=== PATIENT | male | born 1965 | race Caucasian/White ===

== ENCOUNTER 2023-05-27 12:35 | Emergency (ER) | payer OTHER, SELFPAY ==
[2023-05-27 14:09] VITALS: BP 142/88; PULSE 78; RESP 18; TEMP 36.3; O2SAT 96; BMI 33.7
--- NOTE | 2023-05-27 14:20 | ED.GENADULT ---
HPI - General Adult General Chief complaint: General Medical Stated complaint: HBS/HBP Time Seen by Provider: 05/27/23 22:18 Source: patient, RN notes reviewed and old records reviewed Mode of arrival: ambulatory Limitations: no limitations History of Present Illness HPI narrative: 57-year-old male who denies any past medical history presents for evaluation of urinary frequency and elevated blood sugar. Patient reports that he has remote history of high blood pressure but ?I was able to control it with dieting and exercise so I do not take any medications He states for the last few weeks he has noticed increased urination and thirst especially nocturnal urinary frequency He denies any pain He checked his blood sugar at his job and it was noted to be over 400 He denies any known history of diabetes Related Data Previous Rx's Medication Instructions Recorded metformin 500 mg tablet 500 mg PO BID #60 tabs 05/27/23 Allergies Allergy/AdvReac Type Severity Reaction Status Date / Time No Known Allergies Allergy Verified 05/27/23 14:08 Review of Systems Constitutional: Constitutional: Denies chills and Denies fever(s) Cardiovascular: Cardiovascular: Denies chest pain and Denies dyspnea Respiratory: Respiratory: Denies cough and Denies dyspnea Gastrointestinal: Gastrointestinal: Denies abdominal pain, Denies nausea and Denies vomiting Genitourinary: Genitourinary: Reports nocturia and Reports urinary frequency Musculoskeletal: Musculoskeletal: Denies back pain Integumentary/Breasts: Skin/Breast: Denies rash PMFSH Social History Social History Advance Directives: No Advance Directives Information Provided: No Physical Exam ED Vital Signs: Vital Signs - 24 hr 05/27/23 14:09 05/27/23 17:36 05/27/23 21:46 Temperature 97.3 F 97.6 F 97.7 F Pulse Rate 78 85 83 Respiratory Rate 18 18 18 Blood Pressure 142/88 H 132/84 129/82 Pulse Oximetry 96 95 97 Oxygen Delivery Method Room Air Room Air Room Air 05/27/23 22:15 Temperature 97.9 F Pulse Rate 83 Respiratory Rate 16 Blood Pressure 141/97 H Pulse Oximetry 95 Oxygen Delivery Method Room Air BMI result Body Mass Index 33.7 Const General: healthy appearing, comfortable, no acute distress, alert and awake Nutritional Appearance: well nourished Orientation/consciousness: patient oriented x3 HENMT Head: Yes normocephalic and Yes atraumatic Eyes Eyelids: Yes eyelids normal Conjunctivae: conjunctivae normal Sclerae: sclerae normal Corneas: corneas normal Pupils: Equal, round and reactive pupils present EOM: EOMs intact bilaterally Neck Neck: Yes full ROM Resp Effort & Inspection: normal respiratory effort, able to speak in complete sentences and not labored Cardio Rate: regular rate Rhythm: regular rhythm GI Inspection: No distended Palpation (GI): Soft to palpation, not firm, nontender, no guarding and not rigid Skin General skin exam: elasticity normal Neuro General: patient oriented x3 Cranial nerves: Yes Equal, round and reactive pupils present and Yes Bilaterally intact EOM present Cognition (Neuro): normal cognition Extrem Other: Moving all extremities well without any obvious deformities Course Course Course Narrative: This is an RME: Additional HPI, ROS, PE not included below will be deferred to primary provider. This is a 57-year-old male, with no known medical problems, presenting to the emergency department with frequent urination, dry mouth. He checked his sugar on Saturday and it was 408. No history of diabetes however states family medical history. No fevers or chills. No abdominal pain, nausea or vomiting. No chest pain or shortness of breath Plan: Labs, UA Medications Administered Generic Name Dose Route Start Last Admin Trade Name Freq PRN Reason Stop Dose Admin Sodium Chloride 1,000 mls @ 999 mls/hr 05/27/23 23:00 05/27/23 23:07 Ns IV 05/28/23 01:00 999 mls/hr .[id number] CHANEL Administration Medical Decision Making Medical Decision Making [facility] Narrative: 57-year-old male presents for evaluation of increased urination and elevated blood sugar outpatient. He has no known history of diabetes. His blood sugars was noted to be elevated to 396. His anion gap was 11, his sodium was 134 which is normal when corrected for the hyperglycemia. Carbon dioxide is normal at 25 and no evidence of DKA. He has a mild elevation of his T bili but has no abdominal pain, vomiting. His direct bilirubin is normal so there is no suspicion for biliary obstruction. Will treat the patient's glucose with IV fluids and discharge the patient with metformin Differential Diagnosis Differential Diagnoses: The differential diagnosis associated with the presentation includes Hyperglycemia Diabetes HHS UTI Admission/Observation Consideration of admission/observation: Escalation of care including admission/observation considered New onset diabetes over there is no evidence of DKA Lab Data [facility] Lab Attestation statement: I reviewed the patient's lab results. As above 05/27/23 14:29 05/27/23 14:29 Labs: Lab Results 05/27/23 05/27/23 05/27/23 Range/Units 14:29 14:36 16:41 WBC 8.8 (4.8-10.8) X10*3/uL RBC 5.52 (4.60-5.80) X10*6/uL Hgb 16.6 (14.0-18.0) g/dl Hct 46.0 (42.0-52.0) % MCV 83.3 (80.0-98.0) fL MCH 30.1 (27.0-33.0) pg MCHC 36.1 H (31.0-36.0) g/dl RDW 12.3 (11.0-16.0) % Plt Count 209 (160-400) X10*3/uL MPV 11.2 (9.4-12.4) fL Immature Gran % (Auto) 0.6 H (0.0-0.4) % Neut % (Auto) 62.0 (45-73) % Lymph % (Auto) 25.6 (20-40) % [place] % (Auto) 7.5 (2-11) % Eos % (Auto) 3.3 (0-4) % Baso % (Auto) 1.0 (0-2) % Lymph # (Auto) 2.3 (1.2-4.9) X10*3/uL [place] # (Auto) 0.7 (0.1-1.2) X10*3/uL Eos # (Auto) 0.3 (0.0-0.4) X10*3/uL Baso # (Auto) 0.1 (0.0-0.2) X10*3/uL Abs Immat Gran (auto) 0.05 H (0.00-0.03) X10*3/uL Absolute Neuts (auto) 5.4 (2.0-8.3) x10*3/uL Absolute Nucleated RBC 0.000 (0.0-0.012) X10*3/uL Nucleated RBC % (auto) 0.0 (0.0-0.2) /100WBC VBG pH 7.40 (7.32-7.43) VBG pCO2 41 mmHg VBG pO2 48 mmHg VBG HCO3 26 (22-26) mmol/L VBG O2 Saturation 82.0 % VBG Base Excess 1.2 mmol/L Sodium 134 L (135-145) mmol/L Potassium 4.3 (3.3-5.1) mmol/L Chloride 102 (96-108) mmol/L Carbon Dioxide 25 (22-29) mmol/L Anion Gap 11 L (12-20) BUN 13 (9-16) mg/dL Creatinine 1.10 (0.5-1.4) mg/dL Estim Creat Clear Calc 86.1 Estimated GFR > 60 POC Glucose 320 H (60-115) mg/dL Random Glucose 396 H* (60-115) mg/dL Calcium 9.3 (8.4-10.2) mg/dL Total Bilirubin 1.5 H (0.0-1.0) mg/dL Direct Bilirubin 0.4 (0.0-0.5) mg/dL AST 26 (5-37) U/L ALT 43 H (0-40) U/L Alkaline Phosphatase 59 (39-117) U/L Total Protein 7.5 (6.5-8.0) g/dL Albumin 4.2 (3.5-5.0) g/dL Beta-Hydroxybutyrate 0.16 (0.02-0.27) mmol/L Urine Color Yellow Urine Appearance Clear Urine pH 6.0 (5.0-9.0) Ur Specific Mullens >= 1.030 H (1.005-1.025) Urine Protein Negative (Neg-Trace) mg/dL Urine Glucose (UA) >=1000 H (Negative) mg/dL Urine Ketones Trace (Negative) mg/dL Urine Blood Negative (Negative) Urine Nitrite Negative (Negative) Ur Leukocyte Esterase Negative (Negative) Urine RBC 0-2 (0-2) /HPF Urine WBC 0-5 (0-5) /HPF Ur Squamous Epith Cells 0-2 (0-2) /HPF Urine Bacteria None Seen (None Seen) Hyaline Casts 0-2 (0-2) /LPF 05/27/23 Range/Units 18:42 WBC (4.8-10.8) X10*3/uL RBC (4.60-5.80) X10*6/uL Hgb (14.0-18.0) g/dl Hct (42.0-52.0) % MCV (80.0-98.0) fL MCH (27.0-33.0) pg MCHC (31.0-36.0) g/dl RDW (11.0-16.0) % Plt Count (160-400) X10*3/uL MPV (9.4-12.4) fL Immature Gran % (Auto) (0.0-0.4) % Neut % (Auto) (45-73) % Lymph % (Auto) (20-40) % [place] % (Auto) (2-11) % Eos % (Auto) (0-4) % Baso % (Auto) (0-2) % Lymph # (Auto) (1.2-4.9) X10*3/uL [place] # (Auto) (0.1-1.2) X10*3/uL Eos # (Auto) (0.0-0.4) X10*3/uL Baso # (Auto) (0.0-0.2) X10*3/uL Abs Immat Gran (auto) (0.00-0.03) X10*3/uL Absolute Neuts (auto) (2.0-8.3) x10*3/uL Absolute Nucleated RBC (0.0-0.012) X10*3/uL Nucleated RBC % (auto) (0.0-0.2) /100WBC VBG pH (7.32-7.43) VBG pCO2 mmHg VBG pO2 mmHg VBG HCO3 (22-26) mmol/L VBG O2 Saturation % VBG Base Excess mmol/L Sodium (135-145) mmol/L Potassium (3.3-5.1) mmol/L Chloride (96-108) mmol/L Carbon Dioxide (22-29) mmol/L Anion Gap (12-20) BUN (9-16) mg/dL Creatinine (0.5-1.4) mg/dL Estim Creat Clear Calc Estimated GFR POC Glucose 327 H (60-115) mg/dL Random Glucose (60-115) mg/dL Calcium (8.4-10.2) mg/dL Total Bilirubin (0.0-1.0) mg/dL Direct Bilirubin (0.0-0.5) mg/dL AST (5-37) U/L ALT (0-40) U/L Alkaline Phosphatase (39-117) U/L Total Protein (6.5-8.0) g/dL Albumin (3.5-5.0) g/dL Beta-Hydroxybutyrate (0.02-0.27) mmol/L Urine Color Urine Appearance Urine pH (5.0-9.0) Ur Specific Mullens (1.005-1.025) Urine Protein (Neg-Trace) mg/dL Urine Glucose (UA) (Negative) mg/dL Urine Ketones (Negative) mg/dL Urine Blood (Negative) Urine Nitrite (Negative) Ur Leukocyte Esterase (Negative) Urine RBC (0-2) /HPF Urine WBC (0-5) /HPF Ur Squamous Epith Cells (0-2) /HPF Urine Bacteria (None Seen) Hyaline Casts (0-2) /LPF Discharge Plan Discharge Clinical Impression: New onset type 2 diabetes mellitus Patient Disposition: Home, Self-Care Instructions: Type 2 Diabetes in Adults: New Diagnosis (ED) Additional Instructions: Your blood work is significant for new onset diabetes. Avoid sugary foods. Take metformin twice daily. Follow-up with your primary doctor Return for new or worsening symptoms Prescriptions: New metformin 500 mg tablet 500 mg PO BID Qty: 60 0RF
[2023-05-27 14:37] LABS: Basophils Absolute Auto 0.1 X10*3/uL (0.0-0.2); Eosinophils Absolute Auto 0.3 X10*3/uL (0.0-0.4); Eosinophils Percent Auto 3.3 % (0-4); Hemoglobin 16.6 g/dl (14.0-18.0); Imm Gran Abs Auto 0.05 X10*3/uL (0.00-0.03); Imm Gran Pct Auto 0.6 % (0.0-0.4); Lymphocytes Absolute Auto 2.3 X10*3/uL (1.2-4.9); Lymphocytes Percent Auto 25.6 % (20-40); MANUAL DIFF FLAG NO; Mean Corpuscular HGB Conc 36.1 g/dl (31.0-36.0); Mean Corpuscular Hemoglobin 30.1 pg (27.0-33.0); Mean Corpuscular Volume 83.3 fL (80.0-98.0); Mean Platelet Volume 11.2 fL (9.4-12.4); Monocytes Absolute Auto 0.7 X10*3/uL (0.1-1.2); Monocytes Percent Auto 7.5 % (2-11); Neutrophils Absolute Auto 5.4 x10*3/uL (2.0-8.3); Platelet Count 209 X10*3/uL (160-400); Red Blood Count 5.52 X10*6/uL (4.60-5.80); Red Cell Distribution Width 12.3 % (11.0-16.0); White Blood Count 8.8 X10*3/uL (4.8-10.8)
[2023-05-27 14:39] LABS: Appearance Urine Clear; Color Urine Yellow; Glucose Urine UA >=1000 mg/dL (Negative); Leukocyte Esterase Urine Negative (Negative); Nitrite Urine Negative (Negative); Specific Gravity - Urine >= 1.030 (1.005-1.025); UMIC TRIGGER UACC YES; Urine Blood Negative (Negative); Urine Ketones Trace mg/dL (Negative); Urine Protein Negative (Neg-Trace)
[2023-05-27 14:42] LABS: Bacteria Urine None Seen (None Seen); Hyaline Casts Urine 0-2 /LPF (0-2); RBC Urine 0-2 /HPF (0-2); Squamous Epithelial Cell Urine 0-2 /HPF (0-2); WBC Urine 0-5 /HPF (0-5)
[2023-05-27 14:42] LABS: VBG Base Excess 1.2 mmol/L; VBG HCO3 26 mmol/L (22-26); VBG pCO2 41 mmHg; VBG pO2 48 mmHg
[2023-05-27 14:43] LABS: Venous Blood Gas Refer to POC result
[2023-05-27 14:59] LABS: Beta-Hydroxybutyrate 0.16 mmol/L (0.02-0.27)
[2023-05-27 15:04] LABS: Alanine Aminotransferase 43 U/L (0-40); Albumin Level 4.2 g/dL (3.5-5.0); Alkaline Phosphatase 59 U/L (39-117); Anion Gap 11 (12-20); Aspartate Amino Transferase 26 U/L (5-37); Bilirubin Direct 0.4 mg/dL (0.0-0.5); Bilirubin Total 1.5 mg/dL (0.0-1.0); Blood Urea Nitrogen 13 mg/dL (9-16); Calcium 9.3 mg/dL (8.4-10.2); Carbon Dioxide 25 mmol/L (22-29); Chloride 102 mmol/L (96-108); Creatinine Clr Calc Pharmacy 86.1; Estimated Glomerular Filt Rate > 60; Glucose Random 396 mg/dL (60-115); Potassium 4.3 mmol/L (3.3-5.1); Sodium 134 mmol/L (135-145); Total Protein 7.5 g/dL (6.5-8.0)
--- NOTE | 2023-05-27 16:45 | MHC.EDTECH ---
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
[2023-05-27 17:36] VITALS: BP 132/84; PULSE 85; RESP 18; TEMP 36.4; O2SAT 95
[2023-05-27 21:46] VITALS: BP 129/82; PULSE 83; RESP 18; TEMP 36.5; O2SAT 97
[2023-05-27 21:59] LABS: Glucose, Whole Blood 327 mg/dL (60-115)
[2023-05-27 21:59] LABS: Glucose, Whole Blood 320 mg/dL (60-115)
[2023-05-27 22:15] VITALS: BP 141/97; PULSE 83; RESP 16; TEMP 36.6; O2SAT 95
--- NOTE | 2023-05-27 22:16 | MHC.EDTECH ---
This Tech assumed care of this pt upon arrival. VS done and pt changed into a hospital gown
[2023-05-27] MEDS: 0.9 % Sodium Chloride 1,000 ML 999 ML IV (23:07)
[2023-05-28] MEDS: 0.9 % Sodium Chloride 1,000 ML 999 ML IV (00:08)
[2023-05-28 00:43] VITALS: BP 156/98; PULSE 64; RESP 17; TEMP 36.4; O2SAT 97
[2023-05-28 01:40] LABS: Glucose, Whole Blood 221 mg/dL (60-115)
== END 2023-05-28 02:12 | disposition home or self-care (01) ==
PROVIDERS: Physician Assistant Medical; Emergency Provider Internal Medicine
DX: E11.65 Type 2 diabetes mellitus with hyperglycemia (principal); R35.0 Frequency of micturition; Z79.899 Other long term (current) drug therapy
CPT/HCPCS: 36415; 80048; 80076; 81001; 82010; 82803; 82947; 85025; 96360; 96361; 99284